=== PATIENT | female | born 1945 | race Caucasian/White ===

== ENCOUNTER 2020-08-10 12:17 | Day surgery (SDC) | payer MEDICARE ==
[~2020-08-10] VITALS: Ht 149.9 cm; Wt 139.9 kg
[~2020-08-10 12:17] MED LIST: ADV250INH INH; AZEL0.1S NARES; CVS100LI4 PO; CYCL-707 PO; D-40TAB2 PO; DILT240C47 PO; DIOV320T6 PO; FERR32TA PO; GLUC1CAP10 PO; HYDR100T PO; KLOR20TA42 PO; LEVOTAB10 PO; LIDOCAINE 1% MDV 20ML VIAL SQ PRN; LR 1,000 ML IV ONE; OMEP1CAP73 PO; OYST500C PO; SING10TA32 PO; VENTAER INH; VITMTA PO; [UNRECOGNIZED DRUG - CODE] PO; ceFAZolin SOD 1 GM in D5W MINI-BAG PLUS 50 ML IV ONE; ceFAZolin SOD 2 GM in IV 1 EA IV ONE
[2020-08-10] MEDS ORDERED: propofoL 200 MG/20 ML VIAL As Ordered ONE (12:56)
[2020-08-10] MEDS ORDERED: LIDOCAINE 2% 100MG/5ML SDV (FOR ANES.) As Ordered ONE ×2 (12:56→13:37)
[2020-08-10] MEDS ORDERED: MIDAZOLAM INJ 2MG/2ML VIAL (J2250 PER 1MG) As Ordered ONE (12:57)
[2020-08-10] MEDS ORDERED: fentaNYL 100 MCG/2 ML INJECTION (J3010) As Ordered ONE (12:58)
[2020-08-10] MEDS ORDERED: LIDOCAINE 1% MDV 20ML VIAL As Ordered ONE (13:02)
[2020-08-10] MEDS ORDERED: BACITRACIN OINTMENT 30GM TUBE As Ordered ONE (13:02)
[2020-08-10] MEDS ORDERED: QC A650T3 PO (13:10)
[2020-08-10] MEDS ORDERED: propofoL 500 MG/50 ML VIAL As Ordered ONE (13:37)
[2020-08-10 17:10] VITALS: BP 128/66
--- NOTE | 2020-08-10 20:18 | RO ---
OPERATIVE NOTE DATE OF OPERATION: 08/10/2020 PREOPERATIVE DIAGNOSIS: Pacemaker battery depletion. POSTOPERATIVE DIAGNOSIS: Pacemaker battery depletion. FINDINGS: Pacemaker battery depletion. PROCEDURE PERFORMED: Explantation of old single-chamber Medtronic pacemaker pulse generator and implantation of a new single-chamber permanent pulse generator (Medtronic). SURGEON: Scooby Freeman M.D. COUNTY COURT JUDGE: None. ANESTHESIA: Lidocaine 1% local/monitored anesthetic care. SPECIMENS: Old Medtronic single chamber pacemaker pulse generator. ESTIMATED BLOOD LOSS: Less than 10 mL. BLOOD PRODUCTS REPLACED: None. DRAINS: None. COMPLICATIONS: None. PROCEDURE DESCRIPTION: Patient was prepped and draped over the left pectoral region. 3M Ioban film was applied. Lidocaine local 1% was used. An incision was made with a #15 blade through the lower of the two pacemaker scars. Fine scissors dissection was used to get down to and through the anterior capsule overlying the pacemaker pulse generator. The pacemaker pulse generator was then removed from the pocket. The set screw was loosened and the terminal pin was then removed from the existing pacemaker pulse generator and placed into the new pacemaker pulse generator header and secured by tightening the set screw. I then took a medium sized TYRX antimicrobial envelope and cut it into four pieces. Two pieces were placed into the floor of the pacemaker pocket and two pieces were placed on top of the new pacemaker pulse generator. I extended the caudal aspect of the pacemaker pocket using small amounts of PEAK PlasmaBlade cautery to accommodate the larger size of the new pacemaker pulse generator. The new pacemaker pulse generator was then placed in the pocket. Two main pieces of the TYRX envelope was placed on top of the pacemaker pulse generator. The deep layer was closed using individual sutures consisting of 4-0 Vicryl. Additional individual 3-0 Vicryl sutures were used to help approximate the more superficial layer. The skin was then approximated using subcuticular continuous stitch consisting of 4-0 Biosyn with the free margins of the suture protruding 1 cm through the skin on both ends of the incision line. Next, Dermabond Prineo dressing was applied. The free ends of the Biosyn suture were cut at the level of the skin. The Dermabond glue was placed over the Prineo dressing. The patient tolerated the procedure well without any immediate complications. The existing pacemaker pulse generator that was removed was a [employer] IOS-1, , model ADSR01. It had serial number [id number]. It was placed 09/11/2013. The existing right ventricular lead was a Medtronic model 4092-58 with serial number [id number] originally implanted 05/17/2007. The new pacemaker pulse generator implanted was a Medtronic W1SR01 Kiki XT SR MRI SureScan which had serial number [id number]. Device based testing of the existing right ventricular lead showed a pacing impedance of 399 ohms with capture threshold of 1.5 volts and 0.8 milliseconds. No R wave amplitude was available as the patient was completely pacemaker dependent.
== END 2020-08-10 17:25 | disposition home or self-care (01) ==
LOC: M SDC 12:17
PROVIDERS: ATTEND Internal Medicine Cardiovascular Disease
DX: T82.111A Breakdown (mechanical) of cardiac pulse generator (battery), initial encounter (principal); Z45.010 Encounter for checking and testing of cardiac pacemaker pulse generator [battery]; I10 Essential (primary) hypertension; E78.5 Hyperlipidemia, unspecified; G47.33 Obstructive sleep apnea (adult) (pediatric); J45.909 Unspecified asthma, uncomplicated; Z98.84 Bariatric surgery status; Z88.8 Allergy status to other drugs, medicaments and biological substances; Z88.2 Allergy status to sulfonamides; Z79.899 Other long term (current) drug therapy
CPT/HCPCS: 33227; C1786; J0690; J2250; J3010